=== PATIENT | female | born 1990 | race Caucasian/White ===

== ENCOUNTER 2017-03-10 06:36 | Emergency (ER) | payer OTHER ==
[~2017-03-10] VITALS: Ht 154.9 cm; Wt 67.2 kg
[2017-03-10] MEDS ORDERED: ERYTHROMYCIN O3.5 GM LEFT EYE (07:39)
[2017-03-10] MEDS ORDERED: AUGMENTIN875 MG PO (07:39)
[2017-03-10 08:26] VITALS: BP 120/91
== END 2017-03-10 08:30 | disposition home or self-care (01) ==
LOC: EME 06:36
DX: H20.9 Unspecified iridocyclitis (principal); J32.9 Chronic sinusitis, unspecified
CPT/HCPCS: 99281; 99284

== ENCOUNTER 2017-05-31 10:57 | Emergency (ER) | payer OTHER ==
[~2017-05-31] VITALS: Ht 154.9 cm; Wt 67.7 kg
[~2017-05-31 10:57] MED LIST: AUGMENTIN875 MG PO; ERYTHROMYCIN O3.5 GM LEFT EYE
[2017-05-31] MEDS ORDERED: NORCO 5/3251 TABLET PO (14:14)
[2017-05-31] MEDS ORDERED: NAPROSYN500 MG PO (14:14)
[2017-05-31] MEDS ORDERED: SKELAXIN800 MG PO (14:20)
[2017-05-31 14:40] VITALS: BP 128/77
== END 2017-05-31 14:40 | disposition home or self-care (01) ==
LOC: EME 10:57
DX: S32.049A Unspecified fracture of fourth lumbar vertebra, initial encounter for closed fracture (principal); S16.1XXA Strain of muscle, fascia and tendon at neck level, initial encounter; M51.26 Other intervertebral disc displacement, lumbar region; V40.5XXA Car driver injured in collision with pedestrian or animal in traffic accident, initial encounter; V49.40XA Driver injured in collision with unspecified motor vehicles in traffic accident, initial encounter; Z88.2 Allergy status to sulfonamides; Z88.8 Allergy status to other drugs, medicaments and biological substances
CPT/HCPCS: 72110; 99281; 99284

== ENCOUNTER 2018-03-24 16:46 | Emergency (ER) | payer BC ==
[~2018-03-24] VITALS: Ht 154.9 cm; Wt 70.0 kg
[~2018-03-24 16:46] MED LIST changes: +NAPROSYN500 MG PO; +NORCO 5/3251 TABLET PO; +SKELAXIN800 MG PO
[2018-03-24 18:36] LABS: HEMATOCRIT 39.3 % (36.0-46.0); HEMOGLOBIN 13.6 G/DL (11.9-15.5); MCH 30.4 PG (29.0-34.0); MCHC 34.6 G/DL (30.0-36.0); MCV 87.7 FL (83-99); PLATELET COUNT 317 K/uL (156-360); RBC DIS.WIDTH-CV 11.6 % (11.8-14.6); RBC DIS.WIDTH-SD 37.4 % (39-53); RED BLOOD COUNT 4.48 M/uL (3.80-5.20); WHITE BLOOD COUNT 12.9 K/uL (4.1-10.2)
[2018-03-24 18:54] LABS: CHLORIDE 105 mEq/L (99-109); POTASSIUM 3.8 mEq/L (3.7-5.4); SODIUM 138 mEq/L (136-147)
[2018-03-24 18:55] LABS: GLUCOSE 90 mg/dL (70-99)
[2018-03-24 18:59] LABS: CREATININE 0.9 mg/dL (0.6-1.3); GFR ESTIMATE (CALCULATED) > 59 mL/min/
[2018-03-24 19:00] LABS: UREA NITROGEN (BUN) 13 mg/dL (9-23)
[2018-03-24 19:33] LABS: QUANTITATIVE HCG < 4.0 MIU/ML
[2018-03-24] MEDS ORDERED: CLARITIN10 M3 PO (19:53)
[2018-03-24] MEDS ORDERED: AMOXICILLIN875 MG PO (19:53)
[2018-03-24 20:11] VITALS: BP 147/102
[2018-03-24 20:54] LABS: THYROTROPIN (TSH) 7.9 MIU/L (0.4-5.5)
== END 2018-03-24 20:12 | disposition home or self-care (01) ==
LOC: EME 16:46
PROVIDERS: Physician Assistant
DX: I10 Essential (primary) hypertension (principal); J06.9 Acute upper respiratory infection, unspecified; J02.9 Acute pharyngitis, unspecified; R51 Headache; Z88.2 Allergy status to sulfonamides; Z87.891 Personal history of nicotine dependence
CPT/HCPCS: 80048; 84443; 84702; 85027; 99281; 99283